=== PATIENT | male | born 1955 ===

== ENCOUNTER 2018-04-30 21:21 | Emergency (ER) | payer BC ==
[2018-04-30 21:49] VITALS: BP 140/83
[2018-04-30] MEDS ORDERED: Tetracaine 0.5% OPTH.SOL 4 ML* 1 DROP BTL LEFT EYE ONE (22:34)
[2018-04-30] MEDS ORDERED: Tetracaine 0.5% OPTH.SOL 4 ML* 1 DROP BTL ONE (22:35)
[2018-04-30] MEDS ORDERED: Fluorescein Sod TOPICAL 0.6* 0.6 MG TEST OPHTHALMIC ONE (22:35)
[2018-04-30] MEDS ORDERED: Erythromycin OPTH OINT* APPLIC OINT LEFT EYE ONE (22:46)
--- NOTE | 2018-04-30 22:54 | UC ---
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 WAS WEARING EYE PROTECTION. HAD CONTACTS IN AND LEFT THEM IN. OVER THE COURSE OF THE DAY IRRITATION AND REDNESS WORSENED. HAS FB SENSATION AND CLEAR TEARING. NO VISUAL DISTURBANCE, GUTIÉRREZ, NAUSEA. TOOK CONTACTS OUT HERE AT . - History of Current Complaint Chief Complaint: UCEye Stated Complaint: LEFT EYE Time Seen by Provider: 04/30/18 22:25 Hx Obtained From: Patient Onset/Duration: Gradual Onset, Lasting Hours, Still Present Timing: Constant Severity Initially: Mild Severity Currently: Moderate Pain Intensity: 3 Pain Scale Used: 0-10 Numeric Location of Injury: Conjunctiva Character: Foreign Body Sensation Aggravating Factor(s): Contact Lens, Blinking Alleviating Factor(s): Nothing Associated Signs And Symptoms: Positive: Drainage (Clear). Negative: Photophobia, Vision Impairment Bilateral - Allergies/Home Medications Allergies/Adverse Reactions: Allergies Allergy/AdvReac Type Severity Reaction Status Date / Time No Known Allergies Allergy Verified 04/30/18 21:40 PMH/Surg Hx/FS Hx/Imm Hx Previously Healthy: Yes - Surgical History Surgical History: None - Family History Known Family History: Positive: Hypertension - Social History Alcohol Use: Occasionally Substance Use Type: None Smoking Status (MU): Never Smoked Tobacco Review of Systems Constitutional: Negative Eyes: Drainage, Eye Redness Respiratory: Negative Cardiovascular: Negative Gastrointestinal: Negative All Other Systems Reviewed And Are Negative: Yes Physical Exam Triage Information Reviewed: Yes Appearance: Well-Appearing, No Pain Distress Vital Signs: Initial Vital Signs Temp 98.4 F 04/30/18 21:40 Pulse 62 04/30/18 21:40 Resp 16 04/30/18 21:40 BP 140/83 04/30/18 21:40 Pulse Ox 99 04/30/18 21:40 Vital Signs Reviewed: Yes Eyes: Positive: Conjunctiva Inflamed - LEFT, Discharge - CLEAR DRAINAGE LEFT EYE , Other: - FLUORESCEIN UPTAKE IN A RING AROUND IRIS C/W CONTACT LENS PLACEMENT. PERRL, EOMI ENT: Positive: Hearing grossly normal Neck: Positive: Supple Respiratory: Positive: No respiratory distress, No accessory muscle use Cardiovascular: Positive: Pulses Normal Abdomen Description: Positive: Soft Musculoskeletal: Positive: No Edema Neurological: Positive: Alert Psychological: Positive: Normal Response To Family, Age Appropriate Behavior Skin: Negative: rashes Eye Complaint Course/Dx - Differential Dx/Diagnosis Provider Diagnoses: LEFT EYE CORNEAL ABRASION Discharge - Sign-Out/Discharge Documenting (check all that apply): Discharge/Admit/Transfer - Discharge Plan Condition: Stable Disposition: HOME Prescriptions: Erythromycin OPHTH.OINT* [Ilotycin OPHTH.OINT*] 1 applic LEFT EYE QID #1 tube Patient Education Materials: Corneal Abrasion (ED) Referrals: Tru Mcnulty DO [Primary Care Provider] - If Needed Additional Instructions: APPLY ABX OINTMENT TO LOWER LEFT EYE LID 4 TIMES DAILY FOR 7 DAYS. NO CONTACT LENS USE AT ALL UNTIL SYMPTOMS ARE 100% RESOLVED. FOLLOW-UP WITH EYE DOCTOR IF YOU HAVE PERSISTENT PAIN WITH EYE MOVEMENT, FOREIGN BODY SENSATION OR DEVELOP PURULENT DRAINAGE, SENSITIVITY TO LIGHT, FEVER , VISUAL DISTURBANCE OR ANY OTHER CONCERNING SYMPTOMS. - Billing Disposition and Condition Condition: STABLE Disposition: Home
[2018-04-30] MEDS: Fluorescein Sod TOPICAL 0.6* 0.6 MG TEST OPHTHALMIC ONE ×2 (22:56→23:03)
== END 2018-04-30 23:08 | disposition home or self-care (01) ==
LOC: UCCORT 21:21
DX: T15.02XA Foreign body in cornea, left eye, initial encounter (principal); X58.XXXA Exposure to other specified factors, initial encounter; Y93.89 Activity, other specified; Y92.9 Unspecified place or not applicable
CPT/HCPCS: 99213; A9270-GY; G0463